=== PATIENT | male | born 1945 | race Caucasian/White ===

== ENCOUNTER 2022-03-18 14:02 | Inpatient (IN) | payer MEDICARE ==
[~2022-03-18] VITALS: Ht 165.1 cm; Wt 49.1 kg
[~2022-03-18 14:02] MED LIST: AMLO10TA55 PO; ASPI81TA39 PO; CALC0.2521 PO; FAMO20 PO; FERR325T23 PO; GABA-1181 PO; HYDR25TA2 PO; INS7030 SQ; LOSA-382 PO; LOVA40TA2 PO
[2022-03-18] MEDS ORDERED: INSULIN REGULAR, HUMAN 100 UNITS/ML IVP ONE (14:15)
[2022-03-18] MEDS ORDERED: SODIUM CHLORIDE 0.9% 1,000 ML IV ONE ×2 (14:15→17:15)
[2022-03-18 14:54] LABS: BASOPHILS % (AUTO) 0.2 % (0.0-2.0); EOSINOPHILS % (AUTO) 0 % (1.0-6.0); HEMATOCRIT 31.7 % (41-53); HEMOGLOBIN 10.2 g/dL (13.5-17.5); LYMPHOCYTES # (AUTO) 0.8 K/uL (1.0-4.8); LYMPHOCYTES % (AUTO) 4.6 % (22.0-44.0); MEAN CORPUSCULAR HGB CONC 32.1 G/dL (31.0-37.0); MEAN CORPUSCULAR VOLUME 84 fL (80-100); MONOCYTES # (AUTO) 0.5 K/uL (0.1-1.0); NEUTROPHILS # (AUTO) 16.3 K/uL (1.8-7.7); PLATELET COUNT (AUTO) 428 K/uL (150-450); RED BLOOD CELL COUNT(AUTO) 3.77 MIL/uL (4.50-5.90); RED CELL DISTRIBUTION WIDTH 15.7 % (11.5-14.5)
[2022-03-18 14:55] LABS: NEUTROPHILS % (AUTO) 92.2 % (40.0-70.0)
[2022-03-18 15:15] LABS: PLATELET MORPHOLOGY COMMENT LARGE PLTS PRESENT
[2022-03-18 15:16] LABS: ALBUMIN 2.5 g/dL (3.4-5.0); BILIRUBIN,TOTAL 0.5 mg/dL (0.1-1.0); CALCIUM, TOTAL 10.3 mg/dL (8.8-10.5); CREATININE 1.9 mg/dL (0.60-1.30); TOTAL PROTEIN, SERUM 8.1 g/dL (6.4-8.2)
[2022-03-18 15:34] LABS: APPEARANCE,URINE TURBID (CLEAR); BILIRUBIN,URINE NEGATIVE (NEGATIVE); GLUCOSE, URINE (UA) >=1000 mg/dL (NEGATIVE); LEUKOCYTE ESTERASE ,URINE LARGE (NEGATIVE); NITRATE,URINE NEGATIVE (NEGATIVE); OCCULT BLOOD,URINE MODERATE (NEGATIVE); PH,URINE 5.5 (5.0-8.0); PROTEIN,URINE 30-70 mg/dL (NEGATIVE); SPECIFIC GRAVITIY, URINE 1.018 (1.003-1.030); UROBILINOGEN,URINE <=1.0 mg/dL (<=1.0)
[2022-03-18 15:35] LABS: INR 1.1 (0.9-1.1); PROTHROMBIN TIME 11.7 SEC (9.4-11.6)
[2022-03-18 15:40] LABS: AMPHET/METH SCREEN,URINE NEGATIVE (NEGATIVE); BACTERIA,URINE Many /HPF (None Seen); BARBITURATE SCREEN, URINE NEGATIVE (NEGATIVE); BENZODIAZEPINES SCREEN,URINE NEGATIVE (NEGATIVE); CANNABINOID SCREEN,URINE NEGATIVE (NEGATIVE); COCAINE SCREEN,URINE NEGATIVE (NEGATIVE); METHADONE SCREEN, URINE NEGATIVE (NEGATIVE); OPIATE SCREEN,URINE NEGATIVE (NEGATIVE); SQUAMOUS EPITHELIAL CELL,UR Rare /LPF (None Seen); WBC,URINE 51-100 /HPF (0-5)
[2022-03-18 15:41] LABS: PHENCYCLIDINE SCREEN,URINE NEGATIVE (NEGATIVE)
[2022-03-18 15:41] LABS: AMMONIA < 10 umol/L (11-32)
[2022-03-18 15:46] LABS: GLUCOSE,POINT OF CARE 386 MG/DL (70-110)
[2022-03-18 16:02] LABS: LACTIC ACID 1.7 mmol/L (0.4-2.0)
[2022-03-18] MEDS ORDERED: ONDANSETRON HCL 4 MG/2 ML VIAL IVP PRN ×2 (16:15→17:15)
[2022-03-18] MEDS ORDERED: CefTRIAXone 1 GM/DEXTROSE 50 ML IV ONE (16:15)
[2022-03-18] MEDS ORDERED: 0.9% SODIUM CHLORIDE 10 ML SYRINGE IVP PRN (16:15)
[2022-03-18] MEDS ORDERED: ACETAMINOPHEN 325 MG TABLET PO PRN (16:15)
[2022-03-18 16:37] LABS: ABG BASE EXCESS -2.9 mmol/L (-2.0-3.0); ABG CARBOXYHEMOGLOBIN 0.3 % (0.0-1.5); ABG HCO3 22.4 mmol/L (22.0-26.0); ABG METHEMOGLOBIN 0.3 % (0.0-1.5); ABG OXYHEMOGLOBIN 94.4 % (94.0-100.0); ABG PCO2 35 mmHg (35-45); ABG PH 7.412 (7.35-7.450); ABG TOTAL HEMOGLOBIN 9.7 G/dL (12.0-18.0); PO2, ARTERIAL BG 79.9 mmHg (75.0-83.0); SITE, BLOOD GAS LFT RADIAL; SOURCE, BLOOD GAS ARTERIAL; TEMPERATURE, FAHRENHEIT, BG 98.3 FAHREN (96.0-98.6)
[2022-03-18 16:38] LABS: O2 DEVICE,BLOOD GAS ROOM AIR (ROOM AIR)
[2022-03-18] MEDS ORDERED: DEXTROSE 50%-WATER 25 GM/50 ML SYRINGE IVP PRN (17:15)
[2022-03-18] MEDS ORDERED: ALBUTEROL SULFATE 2.5 MG/0.5 ML NEB SOLUTION NEB PRN (17:15)
[2022-03-18] MEDS ORDERED: BISACODYL 10 MG RECTAL RECTAL SUPPOSITORY PR PRN (17:15)
[2022-03-18 17:47] LABS: COVID AG,FIA SOURCE NASAL SWAB
[2022-03-18 18:08] VITALS: BP 128/64
[2022-03-18 20:08] VITALS: BP 151/82
[2022-03-18] MEDS: INSULIN LISPRO 100 UNITS/ML SQ PRN (20:21)
[2022-03-18] MEDS: INSULIN GLARGINE,HUM.REC.ANLOG 100 UNITS/ML SQ SCH (20:22)
[2022-03-18] MEDS: DOCUSATE SODIUM 100 MG CAPSULE PO SCH (20:22)
[2022-03-18] MEDS: HEPARIN SODIUM,PORCINE 5,000 UNITS/ML VIAL SQ SCH (23:42)
[2022-03-19 00:50] LABS: GLUCOMETER DEV NAME(LOC) 6N.1; GLUCOSE,POINT OF CARE 341 MG/DL (70-110)
[2022-03-19 05:07] VITALS: BP 138/63
[2022-03-19] MEDS: INSULIN LISPRO 100 UNITS/ML SQ PRN ×4 (05:48→22:00)
[2022-03-19 08:00] VITALS: BP 128/54
[2022-03-19] MEDS: INSULIN GLARGINE,HUM.REC.ANLOG 100 UNITS/ML SQ SCH ×2 (08:14→21:59)
[2022-03-19] MEDS: FAMOTIDINE 20 MG TABLET PO SCH (08:16)
[2022-03-19] MEDS: DOCUSATE SODIUM 100 MG CAPSULE PO SCH ×2 (08:16→21:58)
[2022-03-19] MEDS: ASPIRIN 81 MG CHEWABLE TABLET PO SCH (08:16)
[2022-03-19] MEDS: HEPARIN SODIUM,PORCINE 5,000 UNITS/ML VIAL SQ SCH ×3 (08:16→23:39)
[2022-03-19 08:58] LABS: EOSINOPHILS % (AUTO) 0 % (1.0-6.0); HEMATOCRIT 28.5 % (41-53); LYMPHOCYTES # (AUTO) 0.8 K/uL (1.0-4.8); MEAN CORPUSCULAR HEMOGLOBIN 26.5 pg (26.0-34.0); MEAN CORPUSCULAR HGB CONC 31.5 G/dL (31.0-37.0); MEAN CORPUSCULAR VOLUME 84 fL (80-100); MONOCYTES # (AUTO) 0.7 K/uL (0.1-1.0); MONOCYTES % (AUTO) 5.8 % (2.0-9.0); NEUTROPHILS # (AUTO) 10.4 K/uL (1.8-7.7); PLATELET COUNT (AUTO) 315 K/uL (150-450); RED BLOOD CELL COUNT(AUTO) 3.38 MIL/uL (4.50-5.90); RED CELL DISTRIBUTION WIDTH 15.8 % (11.5-14.5)
[2022-03-19 08:59] LABS: NEUTROPHILS % (AUTO) 87.2 % (40.0-70.0)
[2022-03-19 09:28] LABS: CALCIUM, TOTAL 9.2 mg/dL (8.8-10.5); CREATININE 1.74 mg/dL (0.60-1.30); POTASSIUM 3.9 mmol/L (3.5-5.1)
[2022-03-19 11:31] LABS: GLUCOMETER DEV NAME(LOC) 6N.1; GLUCOSE,POINT OF CARE 249 MG/DL (70-110)
[2022-03-19] MEDS ORDERED: SODIUM CHLORIDE 0.9% 1,000 ML IV ONE (11:45)
[2022-03-19] MEDS: CefTRIAXone 1 GM/DEXTROSE 50 ML IV SCH (15:43)
[2022-03-19 16:00] VITALS: BP 127/67
[2022-03-19 17:31] LABS: GLUCOMETER DEV NAME(LOC) 6N.2B; GLUCOSE,POINT OF CARE 252 MG/DL (70-110)
[2022-03-19 18:32] LABS: GLUCOMETER DEV NAME(LOC) 6N.1; GLUCOSE,POINT OF CARE 331 MG/DL (70-110)
[2022-03-19 20:44] VITALS: BP 134/61
[2022-03-19 20:56] LABS: GLUCOMETER DEV NAME(LOC) 6N.1; GLUCOSE,POINT OF CARE 295 MG/DL (70-110)
[2022-03-20] MEDS: INSULIN LISPRO 100 UNITS/ML SQ PRN ×4 (05:38→21:27)
[2022-03-20 05:55] VITALS: BP 148/74
[2022-03-20 06:41] LABS: GLUCOMETER DEV NAME(LOC) 6N.1; GLUCOSE,POINT OF CARE 315 MG/DL (70-110)
[2022-03-20 08:03] VITALS: BP 143/89
[2022-03-20 08:12] LABS: MAGNESIUM 1.8 mg/dL (1.80-2.40)
[2022-03-20] MEDS: ASPIRIN 81 MG CHEWABLE TABLET PO SCH (09:10)
[2022-03-20] MEDS: FAMOTIDINE 20 MG TABLET PO SCH (09:10)
[2022-03-20] MEDS: DOCUSATE SODIUM 100 MG CAPSULE PO SCH ×2 (09:10→21:26)
[2022-03-20] MEDS: INSULIN GLARGINE,HUM.REC.ANLOG 100 UNITS/ML SQ SCH ×2 (09:11→21:26)
[2022-03-20] MEDS: HEPARIN SODIUM,PORCINE 5,000 UNITS/ML VIAL SQ SCH ×2 (09:12→16:03)
[2022-03-20 10:42] LABS: CALCIUM, TOTAL 8.7 mg/dL (8.8-10.5); CREATININE 1.26 mg/dL (0.60-1.30); POTASSIUM 3.7 mmol/L (3.5-5.1)
[2022-03-20] MEDS ORDERED: LEVO-72 PO (14:24)
[2022-03-20] MEDS ORDERED: METF-1185 PO (14:24)
[2022-03-20] MEDS ORDERED: ASPI81 PO (14:24)
[2022-03-20 15:11] LABS: GLUCOMETER DEV NAME(LOC) 6N.2B; GLUCOSE,POINT OF CARE 279 MG/DL (70-110)
[2022-03-20] MEDS: CefTRIAXone 1 GM/DEXTROSE 50 ML IV SCH (16:03)
[2022-03-20 16:09] VITALS: BP 113/62
[2022-03-20] MEDS ORDERED: SODIUM CHLORIDE 0.9% 250 ML IV ONE (16:09)
[2022-03-20 20:15] VITALS: BP 140/64
[2022-03-20 22:51] LABS: GLUCOMETER DEV NAME(LOC) 6N.2B; GLUCOSE,POINT OF CARE 250 MG/DL (70-110)
[2022-03-20 22:51] LABS: GLUCOMETER DEV NAME(LOC) 6N.1; GLUCOSE,POINT OF CARE 232 MG/DL (70-110)
[2022-03-21] MEDS: HEPARIN SODIUM,PORCINE 5,000 UNITS/ML VIAL SQ SCH ×4 (00:14→23:10)
[2022-03-21 04:13] VITALS: BP 110/60
[2022-03-21] MEDS: INSULIN LISPRO 100 UNITS/ML SQ PRN ×3 (06:07→20:47)
[2022-03-21 06:26] LABS: GLUCOMETER DEV NAME(LOC) 6N.2B; GLUCOSE,POINT OF CARE 242 MG/DL (70-110)
[2022-03-21 07:30] VITALS: BP 129/62
[2022-03-21] MEDS: ASPIRIN 81 MG CHEWABLE TABLET PO SCH (08:23)
[2022-03-21] MEDS: DOCUSATE SODIUM 100 MG CAPSULE PO SCH ×2 (08:23→20:50)
[2022-03-21] MEDS: FAMOTIDINE 20 MG TABLET PO SCH (08:23)
[2022-03-21] MEDS: INSULIN GLARGINE,HUM.REC.ANLOG 100 UNITS/ML SQ SCH ×2 (08:24→20:49)
[2022-03-21 12:41] LABS: GLUCOMETER DEV NAME(LOC) 6N.2B; GLUCOSE,POINT OF CARE 314 MG/DL (70-110)
[2022-03-21 16:00] VITALS: BP 125/66
[2022-03-21] MEDS: CefTRIAXone 1 GM/DEXTROSE 50 ML IV SCH (16:34)
[2022-03-21 19:35] VITALS: BP 128/68
[2022-03-21 22:41] LABS: GLUCOMETER DEV NAME(LOC) 6N.2B; GLUCOSE,POINT OF CARE 276 MG/DL (70-110)
[2022-03-22 04:05] VITALS: BP 137/55
[2022-03-22] MEDS: INSULIN LISPRO 100 UNITS/ML SQ PRN ×4 (06:00→21:43)
[2022-03-22] MEDS: DOCUSATE SODIUM 100 MG CAPSULE PO SCH ×2 (08:25→21:41)
[2022-03-22] MEDS: FAMOTIDINE 20 MG TABLET PO SCH (08:25)
[2022-03-22] MEDS: HEPARIN SODIUM,PORCINE 5,000 UNITS/ML VIAL SQ SCH ×3 (08:26→23:47)
[2022-03-22] MEDS: ASPIRIN 81 MG CHEWABLE TABLET PO SCH (08:26)
[2022-03-22] MEDS: INSULIN GLARGINE,HUM.REC.ANLOG 100 UNITS/ML SQ SCH ×2 (08:27→21:42)
[2022-03-22 09:05] LABS: GLUCOMETER DEV NAME(LOC) 6N.1; GLUCOSE,POINT OF CARE 163 MG/DL (70-110)
[2022-03-22 09:06] LABS: GLUCOMETER DEV NAME(LOC) 6N.1; GLUCOSE,POINT OF CARE 343 MG/DL (70-110)
[2022-03-22 09:47] VITALS: BP 160/93
[2022-03-22 09:48] VITALS: BP 153/70
[2022-03-22 12:00] VITALS: BP 120/58
[2022-03-22 13:21] LABS: GLUCOMETER DEV NAME(LOC) 6N.2B; GLUCOSE,POINT OF CARE 283 MG/DL (70-110)
[2022-03-22] MEDS: CefTRIAXone 1 GM/DEXTROSE 50 ML IV SCH (15:12)
[2022-03-22 15:42] VITALS: BP 128/61
[2022-03-22 17:16] LABS: GLUCOMETER DEV NAME(LOC) 6N.1; GLUCOSE,POINT OF CARE 259 MG/DL (70-110)
[2022-03-22 20:22] VITALS: BP 121/52
[2022-03-23] MEDS: INSULIN LISPRO 100 UNITS/ML SQ PRN ×4 (06:02→20:50)
[2022-03-23 07:01] LABS: GLUCOMETER DEV NAME(LOC) 6N.2B; GLUCOSE,POINT OF CARE 346 MG/DL (70-110)
[2022-03-23 07:02] LABS: GLUCOMETER DEV NAME(LOC) 6N.2B; GLUCOSE,POINT OF CARE 180 MG/DL (70-110)
[2022-03-23] MEDS: ASPIRIN 81 MG CHEWABLE TABLET PO SCH (08:48)
[2022-03-23] MEDS: HEPARIN SODIUM,PORCINE 5,000 UNITS/ML VIAL SQ SCH ×2 (08:48→16:56)
[2022-03-23] MEDS: FAMOTIDINE 20 MG TABLET PO SCH (08:48)
[2022-03-23] MEDS: DOCUSATE SODIUM 100 MG CAPSULE PO SCH ×2 (08:48→20:46)
[2022-03-23] MEDS: INSULIN GLARGINE,HUM.REC.ANLOG 100 UNITS/ML SQ SCH ×2 (08:50→20:49)
[2022-03-23 15:30] VITALS: BP 125/58
[2022-03-23 15:41] LABS: GLUCOMETER DEV NAME(LOC) 6N.2B; GLUCOSE,POINT OF CARE 261 MG/DL (70-110)
[2022-03-23] MEDS ORDERED: SODIUM CHLORIDE 0.9% 500 ML IV ONE (16:51)
[2022-03-23] MEDS: CefTRIAXone 1 GM/DEXTROSE 50 ML IV SCH (16:56)
[2022-03-23 18:06] LABS: GLUCOMETER DEV NAME(LOC) 6N.1; GLUCOSE,POINT OF CARE 253 MG/DL (70-110)
[2022-03-23 19:48] VITALS: BP 130/87
[2022-03-24 01:06] LABS: GLUCOMETER DEV NAME(LOC) 6N.1; GLUCOSE,POINT OF CARE 211 MG/DL (70-110)
[2022-03-24] MEDS: HEPARIN SODIUM,PORCINE 5,000 UNITS/ML VIAL SQ SCH ×5 (01:07→23:46)
[2022-03-24 05:09] VITALS: BP 133/61
[2022-03-24] MEDS: INSULIN LISPRO 100 UNITS/ML SQ PRN ×4 (05:50→20:12)
[2022-03-24 07:06] LABS: GLUCOMETER DEV NAME(LOC) 6N.1; GLUCOSE,POINT OF CARE 162 MG/DL (70-110)
[2022-03-24 07:50] VITALS: BP 146/76
[2022-03-24] MEDS: FAMOTIDINE 20 MG TABLET PO SCH (08:10)
[2022-03-24] MEDS: DOCUSATE SODIUM 100 MG CAPSULE PO SCH ×2 (08:11→20:10)
[2022-03-24] MEDS: ASPIRIN 81 MG CHEWABLE TABLET PO SCH (08:11)
[2022-03-24 08:22] VITALS: BP 146/76
[2022-03-24] MEDS: INSULIN GLARGINE,HUM.REC.ANLOG 100 UNITS/ML SQ SCH ×2 (08:40→20:11)
[2022-03-24 12:16] LABS: GLUCOMETER DEV NAME(LOC) 6N.1; GLUCOSE,POINT OF CARE 261 MG/DL (70-110)
[2022-03-24] MEDS: CefTRIAXone 1 GM/DEXTROSE 50 ML IV SCH (15:51)
[2022-03-24 16:30] VITALS: BP 123/49
[2022-03-24 16:31] VITALS: BP 101/37
[2022-03-24 20:04] VITALS: BP 125/84
[2022-03-24 20:41] LABS: GLUCOMETER DEV NAME(LOC) 6N.2B; GLUCOSE,POINT OF CARE 186 MG/DL (70-110)
[2022-03-25 00:46] LABS: GLUCOMETER DEV NAME(LOC) 6N.1; GLUCOSE,POINT OF CARE 210 MG/DL (70-110)
[2022-03-25 03:51] VITALS: BP 133/73
[2022-03-25 05:16] LABS: GLUCOMETER DEV NAME(LOC) 6N.1; GLUCOSE,POINT OF CARE 156 MG/DL (70-110)
[2022-03-25] MEDS: INSULIN LISPRO 100 UNITS/ML SQ PRN ×4 (06:07→21:17)
[2022-03-25 08:07] VITALS: BP 124/57
[2022-03-25] MEDS: FAMOTIDINE 20 MG TABLET PO SCH (08:13)
[2022-03-25] MEDS: ASPIRIN 81 MG CHEWABLE TABLET PO SCH (08:13)
[2022-03-25] MEDS: DOCUSATE SODIUM 100 MG CAPSULE PO SCH ×2 (08:13→21:14)
[2022-03-25] MEDS: HEPARIN SODIUM,PORCINE 5,000 UNITS/ML VIAL SQ SCH ×2 (08:14→15:14)
[2022-03-25] MEDS: INSULIN GLARGINE,HUM.REC.ANLOG 100 UNITS/ML SQ SCH ×2 (08:19→21:16)
[2022-03-25 12:31] LABS: GLUCOMETER DEV NAME(LOC) 6N.1; GLUCOSE,POINT OF CARE 266 MG/DL (70-110)
[2022-03-25] MEDS: CefTRIAXone 1 GM/DEXTROSE 50 ML IV SCH (15:14)
[2022-03-25 16:19] VITALS: BP 143/76
[2022-03-25 19:06] LABS: GLUCOMETER DEV NAME(LOC) 6N.2B; GLUCOSE,POINT OF CARE 211 MG/DL (70-110)
[2022-03-25 21:07] VITALS: BP 115/56
[2022-03-26] MEDS: HEPARIN SODIUM,PORCINE 5,000 UNITS/ML VIAL SQ SCH ×4 (00:15→23:43)
[2022-03-26 04:10] VITALS: BP 109/62
[2022-03-26 04:26] LABS: GLUCOMETER DEV NAME(LOC) 6N.1; GLUCOSE,POINT OF CARE 210 MG/DL (70-110)
[2022-03-26 07:41] LABS: GLUCOMETER DEV NAME(LOC) 6N.1; GLUCOSE,POINT OF CARE 117 MG/DL (70-110)
[2022-03-26] MEDS: DOCUSATE SODIUM 100 MG CAPSULE PO SCH ×2 (09:21→20:10)
[2022-03-26] MEDS: ASPIRIN 81 MG CHEWABLE TABLET PO SCH (09:21)
[2022-03-26] MEDS: FAMOTIDINE 20 MG TABLET PO SCH (09:21)
[2022-03-26] MEDS: INSULIN GLARGINE,HUM.REC.ANLOG 100 UNITS/ML SQ SCH ×2 (10:02→20:11)
[2022-03-26 12:41] LABS: GLUCOMETER DEV NAME(LOC) 6N.1; GLUCOSE,POINT OF CARE 127 MG/DL (70-110)
[2022-03-26 16:17] VITALS: BP 109/46
[2022-03-26] MEDS: CefTRIAXone 1 GM/DEXTROSE 50 ML IV SCH (16:26)
[2022-03-26] MEDS: INSULIN LISPRO 100 UNITS/ML SQ PRN ×2 (17:26→20:12)
[2022-03-26 19:33] VITALS: BP 119/53
[2022-03-26 19:37] LABS: GLUCOMETER DEV NAME(LOC) 6N.1; GLUCOSE,POINT OF CARE 249 MG/DL (70-110)
[2022-03-27 00:01] LABS: GLUCOMETER DEV NAME(LOC) 6N.2B; GLUCOSE,POINT OF CARE 272 MG/DL (70-110)
[2022-03-27 04:33] VITALS: BP 130/54
[2022-03-27] MEDS: INSULIN LISPRO 100 UNITS/ML SQ PRN ×4 (06:17→20:12)
[2022-03-27 07:28] VITALS: BP 117/57
[2022-03-27 07:41] LABS: GLUCOMETER DEV NAME(LOC) 6N.1; GLUCOSE,POINT OF CARE 211 MG/DL (70-110)
[2022-03-27] MEDS: DOCUSATE SODIUM 100 MG CAPSULE PO SCH ×2 (08:14→20:09)
[2022-03-27] MEDS: ASPIRIN 81 MG CHEWABLE TABLET PO SCH (08:14)
[2022-03-27] MEDS: HEPARIN SODIUM,PORCINE 5,000 UNITS/ML VIAL SQ SCH ×3 (08:14→23:50)
[2022-03-27] MEDS: FAMOTIDINE 20 MG TABLET PO SCH (08:14)
[2022-03-27] MEDS: INSULIN GLARGINE,HUM.REC.ANLOG 100 UNITS/ML SQ SCH ×2 (08:19→20:11)
[2022-03-27 12:51] LABS: GLUCOMETER DEV NAME(LOC) 6N.2B; GLUCOSE,POINT OF CARE 345 MG/DL (70-110)
[2022-03-27 15:29] VITALS: BP 111/62
[2022-03-27] MEDS: CefTRIAXone 1 GM/DEXTROSE 50 ML IV SCH (16:15)
[2022-03-27 17:47] LABS: GLUCOMETER DEV NAME(LOC) 6N.2B; GLUCOSE,POINT OF CARE 201 MG/DL (70-110)
[2022-03-27 19:40] VITALS: BP 137/66
[2022-03-28 00:41] LABS: GLUCOMETER DEV NAME(LOC) 6N.1; GLUCOSE,POINT OF CARE 218 MG/DL (70-110)
[2022-03-28 04:05] VITALS: BP 148/67
[2022-03-28] MEDS: INSULIN LISPRO 100 UNITS/ML SQ PRN ×4 (05:55→20:37)
[2022-03-28 08:30] VITALS: BP 144/72
[2022-03-28] MEDS: FAMOTIDINE 20 MG TABLET PO SCH (09:15)
[2022-03-28] MEDS: HEPARIN SODIUM,PORCINE 5,000 UNITS/ML VIAL SQ SCH ×3 (09:15→23:02)
[2022-03-28] MEDS: ASPIRIN 81 MG CHEWABLE TABLET PO SCH (09:15)
[2022-03-28] MEDS: DOCUSATE SODIUM 100 MG CAPSULE PO SCH ×2 (09:15→20:38)
[2022-03-28] MEDS: INSULIN GLARGINE,HUM.REC.ANLOG 100 UNITS/ML SQ SCH ×2 (09:17→20:38)
[2022-03-28 12:30] LABS: GLUCOMETER DEV NAME(LOC) 6N.2B; GLUCOSE,POINT OF CARE 185 MG/DL (70-110)
[2022-03-28 12:31] LABS: GLUCOMETER DEV NAME(LOC) 6N.2B; GLUCOSE,POINT OF CARE 329 MG/DL (70-110)
[2022-03-28] MEDS: CefTRIAXone 1 GM/DEXTROSE 50 ML IV SCH (16:23)
[2022-03-28 18:01] LABS: GLUCOMETER DEV NAME(LOC) 6N.2B; GLUCOSE,POINT OF CARE 204 MG/DL (70-110)
[2022-03-28 21:00] VITALS: BP 138/61
[2022-03-29 04:15] VITALS: BP 147/72
[2022-03-29] MEDS: INSULIN LISPRO 100 UNITS/ML SQ PRN ×4 (05:22→20:18)
[2022-03-29 06:26] LABS: GLUCOMETER DEV NAME(LOC) 6N.1; GLUCOSE,POINT OF CARE 254 MG/DL (70-110)
[2022-03-29 07:11] LABS: GLUCOMETER DEV NAME(LOC) 6N.2B; GLUCOSE,POINT OF CARE 286 MG/DL (70-110)
[2022-03-29 08:32] VITALS: BP 126/58
[2022-03-29] MEDS: ASPIRIN 81 MG CHEWABLE TABLET PO SCH (08:38)
[2022-03-29] MEDS: DOCUSATE SODIUM 100 MG CAPSULE PO SCH ×2 (08:39→20:13)
[2022-03-29] MEDS: HEPARIN SODIUM,PORCINE 5,000 UNITS/ML VIAL SQ SCH ×3 (08:39→23:48)
[2022-03-29] MEDS: FAMOTIDINE 20 MG TABLET PO SCH (08:39)
[2022-03-29] MEDS: INSULIN GLARGINE,HUM.REC.ANLOG 100 UNITS/ML SQ SCH ×2 (08:47→20:17)
[2022-03-29 13:11] LABS: GLUCOMETER DEV NAME(LOC) 6N.1; GLUCOSE,POINT OF CARE 242 MG/DL (70-110)
[2022-03-29 15:19] VITALS: BP 127/57
[2022-03-29] MEDS: CefTRIAXone 1 GM/DEXTROSE 50 ML IV SCH (16:09)
[2022-03-29 17:36] LABS: GLUCOMETER DEV NAME(LOC) 6N.1; GLUCOSE,POINT OF CARE 255 MG/DL (70-110)
[2022-03-29 20:30] VITALS: BP 103/48
[2022-03-29 22:26] LABS: GLUCOMETER DEV NAME(LOC) 6N.1; GLUCOSE,POINT OF CARE 196 MG/DL (70-110)
[2022-03-30 05:45] VITALS: BP 150/70
[2022-03-30] MEDS: INSULIN LISPRO 100 UNITS/ML SQ PRN ×4 (06:19→20:53)
[2022-03-30 07:33] VITALS: BP 130/64
[2022-03-30] MEDS: HEPARIN SODIUM,PORCINE 5,000 UNITS/ML VIAL SQ SCH ×3 (08:00→23:48)
[2022-03-30] MEDS: INSULIN GLARGINE,HUM.REC.ANLOG 100 UNITS/ML SQ SCH ×2 (08:54→20:53)
[2022-03-30] MEDS: DOCUSATE SODIUM 100 MG CAPSULE PO SCH ×2 (08:58→20:54)
[2022-03-30] MEDS: ASPIRIN 81 MG CHEWABLE TABLET PO SCH (08:58)
[2022-03-30] MEDS: FAMOTIDINE 20 MG TABLET PO SCH (08:58)
[2022-03-30 10:36] LABS: GLUCOMETER DEV NAME(LOC) 6N.2B; GLUCOSE,POINT OF CARE 223 MG/DL (70-110)
[2022-03-30 15:10] VITALS: BP 116/50
[2022-03-30] MEDS: CefTRIAXone 1 GM/DEXTROSE 50 ML IV SCH (17:29)
[2022-03-30 19:26] LABS: GLUCOMETER DEV NAME(LOC) 6N.1; GLUCOSE,POINT OF CARE 214 MG/DL (70-110)
[2022-03-30 20:46] VITALS: BP 135/57
[2022-03-31 01:36] LABS: GLUCOMETER DEV NAME(LOC) 6N.2B; GLUCOSE,POINT OF CARE 244 MG/DL (70-110)
[2022-03-31 01:36] LABS: GLUCOMETER DEV NAME(LOC) 6N.2B; GLUCOSE,POINT OF CARE 263 MG/DL (70-110)
[2022-03-31 04:55] VITALS: BP 128/62
[2022-03-31] MEDS: INSULIN LISPRO 100 UNITS/ML SQ PRN ×4 (05:51→18:00)
[2022-03-31] MEDS: ACETAMINOPHEN 325 MG TABLET PO PRN (05:51)
[2022-03-31 07:06] LABS: GLUCOMETER DEV NAME(LOC) 6N.2B; GLUCOSE,POINT OF CARE 159 MG/DL (70-110)
[2022-03-31 08:06] VITALS: BP 148/66
[2022-03-31] MEDS: ASPIRIN 81 MG CHEWABLE TABLET PO SCH (08:59)
[2022-03-31] MEDS: FAMOTIDINE 20 MG TABLET PO SCH (08:59)
[2022-03-31] MEDS: DOCUSATE SODIUM 100 MG CAPSULE PO SCH ×2 (08:59→21:00)
[2022-03-31] MEDS: INSULIN GLARGINE,HUM.REC.ANLOG 100 UNITS/ML SQ SCH ×2 (09:03→21:24)
[2022-03-31] MEDS: HEPARIN SODIUM,PORCINE 5,000 UNITS/ML VIAL SQ SCH ×3 (09:03→23:52)
[2022-03-31] MEDS ORDERED: DOCU-385 PO (14:00)
[2022-03-31] MEDS ORDERED: INSLAN SQ (14:01)
[2022-03-31] MEDS ORDERED: FAMO20 PO (14:01)
[2022-03-31] MEDS ORDERED: ACET-2247 PO (14:02)
[2022-03-31] MEDS ORDERED: BISA10SU11 PR (14:03)
[2022-03-31] MEDS ORDERED: A20IH1 NEB (14:03)
[2022-03-31 14:31] LABS: GLUCOMETER DEV NAME(LOC) 6N.2B; GLUCOSE,POINT OF CARE 216 MG/DL (70-110)
[2022-03-31 15:13] VITALS: BP 138/96
[2022-03-31 16:24] LABS: COVID AG,FIA SOURCE NASAL SWAB
[2022-03-31 18:36] LABS: GLUCOMETER DEV NAME(LOC) 6N.1; GLUCOSE,POINT OF CARE 412 MG/DL (70-110)
[2022-04-01] MEDS: ACETAMINOPHEN 325 MG TABLET PO PRN ×2 (04:47→22:32)
[2022-04-01 04:49] VITALS: BP 133/63
[2022-04-01] MEDS: INSULIN LISPRO 100 UNITS/ML SQ PRN ×3 (04:55→17:25)
[2022-04-01 05:01] LABS: GLUCOMETER DEV NAME(LOC) 6N.2B; GLUCOSE,POINT OF CARE 131 MG/DL (70-110)
[2022-04-01 06:32] LABS: CALCIUM, TOTAL 8.8 mg/dL (8.8-10.5); CREATININE 1.66 mg/dL (0.60-1.30); POTASSIUM 4.7 mmol/L (3.5-5.1)
[2022-04-01 06:37] LABS: BASOPHILS % (AUTO) 0.6 % (0.0-2.0); EOSINOPHILS % (AUTO) 0.3 % (1.0-6.0); LYMPHOCYTES # (AUTO) 1.4 K/uL (1.0-4.8); MEAN CORPUSCULAR HEMOGLOBIN 28.2 pg (26.0-34.0); MEAN CORPUSCULAR HGB CONC 33.4 G/dL (31.0-37.0); MEAN CORPUSCULAR VOLUME 85 fL (80-100); MONOCYTES # (AUTO) 0.5 K/uL (0.1-1.0); MONOCYTES % (AUTO) 7.1 % (2.0-9.0); PLATELET COUNT (AUTO) 390 K/uL (150-450); RED BLOOD CELL COUNT(AUTO) 2.46 MIL/uL (4.50-5.90); RED CELL DISTRIBUTION WIDTH 16.9 % (11.5-14.5)
[2022-04-01 06:51] LABS: GLUCOMETER DEV NAME(LOC) 6N.1; GLUCOSE,POINT OF CARE 212 MG/DL (70-110)
[2022-04-01 07:35] LABS: HEMOGLOBIN 6.9 g/dL (13.5-17.5)
[2022-04-01 07:36] LABS: HEMATOCRIT 20.8 % (41-53)
[2022-04-01] MEDS: ASPIRIN 81 MG CHEWABLE TABLET PO SCH (09:00)
[2022-04-01] MEDS: INSULIN GLARGINE,HUM.REC.ANLOG 100 UNITS/ML SQ SCH ×2 (09:01→22:32)
[2022-04-01] MEDS: FAMOTIDINE 20 MG TABLET PO SCH (09:06)
[2022-04-01] MEDS: DOCUSATE SODIUM 100 MG CAPSULE PO SCH ×2 (09:07→22:35)
[2022-04-01 09:42] VITALS: BP 100/58
[2022-04-01] MEDS: PANTOPRAZOLE SODIUM 40 MG DR TABLET PO SCH (11:44)
[2022-04-01] MEDS ORDERED: SODIUM CHLORIDE 0.9% 500 ML IV ONE (12:26)
[2022-04-01 13:36] LABS: GLUCOMETER DEV NAME(LOC) 6N.1; GLUCOSE,POINT OF CARE 197 MG/DL (70-110)
[2022-04-01 15:43] VITALS: BP 133/57
[2022-04-01 16:31] LABS: BASOPHILS % (AUTO) 0.5 % (0.0-2.0); EOSINOPHILS % (AUTO) 0.9 % (1.0-6.0); HEMATOCRIT 23.2 % (41-53); HEMOGLOBIN 7.5 g/dL (13.5-17.5); LYMPHOCYTES # (AUTO) 1.1 K/uL (1.0-4.8); LYMPHOCYTES % (AUTO) 17.2 % (22.0-44.0); MEAN CORPUSCULAR HEMOGLOBIN 27.5 pg (26.0-34.0); MEAN CORPUSCULAR HGB CONC 32.4 G/dL (31.0-37.0); MEAN CORPUSCULAR VOLUME 85 fL (80-100); MONOCYTES # (AUTO) 0.5 K/uL (0.1-1.0); MONOCYTES % (AUTO) 7.3 % (2.0-9.0); NEUTROPHILS # (AUTO) 4.7 K/uL (1.8-7.7); NEUTROPHILS % (AUTO) 74.1 % (40.0-70.0); PLATELET COUNT (AUTO) 392 K/uL (150-450); RED BLOOD CELL COUNT(AUTO) 2.74 MIL/uL (4.50-5.90); RED CELL DISTRIBUTION WIDTH 17.2 % (11.5-14.5)
[2022-04-01 20:01] LABS: GLUCOMETER DEV NAME(LOC) 6N.2B; GLUCOSE,POINT OF CARE 200 MG/DL (70-110)
[2022-04-01 23:02] VITALS: BP 143/68
[2022-04-02 02:31] LABS: GLUCOMETER DEV NAME(LOC) 6N.1; GLUCOSE,POINT OF CARE 127 MG/DL (70-110)
[2022-04-02] MEDS: INSULIN LISPRO 100 UNITS/ML SQ PRN ×2 (06:13→11:56)
[2022-04-02] MEDS: PANTOPRAZOLE SODIUM 40 MG DR TABLET PO SCH (08:04)
[2022-04-02] MEDS: DOCUSATE SODIUM 100 MG CAPSULE PO SCH (08:05)
[2022-04-02] MEDS: ASPIRIN 81 MG CHEWABLE TABLET PO SCH (08:05)
[2022-04-02] MEDS: INSULIN GLARGINE,HUM.REC.ANLOG 100 UNITS/ML SQ SCH (08:10)
[2022-04-02 08:22] VITALS: BP 115/52
[2022-04-02 17:46] LABS: GLUCOMETER DEV NAME(LOC) 6N.1; GLUCOSE,POINT OF CARE 335 MG/DL (70-110)
[2022-04-02 20:01] LABS: GLUCOMETER DEV NAME(LOC) 6N.2B; GLUCOSE,POINT OF CARE 215 MG/DL (70-110)
== END 2022-04-02 14:32 | DRG 91 ==
LOC: EMS 14:16 → 6S 17:11 → 6N 03-31 19:00
PROVIDERS: ADMIT Internal Medicine; ATTEND Internal Medicine
DX: G92.8 Other toxic encephalopathy (principal); E43 Unspecified severe protein-calorie malnutrition; N17.0 Acute kidney failure with tubular necrosis; U07.1 COVID-19; R64 Cachexia; N39.0 Urinary tract infection, site not specified; Z68.1 Body mass index [BMI] 19.9 or less, adult; R65.10 Systemic inflammatory response syndrome (SIRS) of non-infectious origin without acute organ dysfunction; E11.649 Type 2 diabetes mellitus with hypoglycemia without coma; Z79.4 Long term (current) use of insulin; E11.40 Type 2 diabetes mellitus with diabetic neuropathy, unspecified; N18.30 Chronic kidney disease, stage 3 unspecified; E11.22 Type 2 diabetes mellitus with diabetic chronic kidney disease; F17.210 Nicotine dependence, cigarettes, uncomplicated; Z20.822 Contact with and (suspected) exposure to COVID-19; D63.1 Anemia in chronic kidney disease; R62.7 Adult failure to thrive; E86.0 Dehydration; I12.9 Hypertensive chronic kidney disease with stage 1 through stage 4 chronic kidney disease, or unspecified chronic kidney disease; Z79.82 Long term (current) use of aspirin; Z91.14 Patient's other noncompliance with medication regimen; Z91.013 Allergy to seafood
CPT/HCPCS: 36600; 51702; 70450; 71045; 80048; 80053; 81001; 82140; 82271; 82550; 82805; 82962; 83605; 83735; 84100; 84484; 85025; 85610; 85730; 86850; 86900; 86901; 86923; 87040; 87077; 87086; 87186; 87205; 92526; 92610; 93005; 97116; 97162; 97530; 99285; J0696; J1644; J1815; J7030; J7040; J7050; 36415-L1; 36415-TC